=== PATIENT | male | born 1960 | race Caucasian/White ===

== ENCOUNTER → 2016-08-01 | Outpatient (CLI) | payer MEDICARE, MEDICAID | END | disposition home or self-care (01) | LOC: LAB 11:11 | PROVIDERS: ATTEND Specialist | DX: Z01.818 Encounter for other preprocedural examination (principal); C34.12 Malignant neoplasm of upper lobe, left bronchus or lung ==

== ENCOUNTER → 2016-08-09 | Outpatient (CLI) | payer MEDICARE, MEDICAID ==
[~2016-08-09] VITALS: Ht 177.8 cm; Wt 79.4 kg
== END | disposition home or self-care (01) ==
LOC: XY 10:00
PROVIDERS: ATTEND Internal Medicine Cardiovascular Disease
DX: Z01.818 Encounter for other preprocedural examination (principal); C34.12 Malignant neoplasm of upper lobe, left bronchus or lung
CPT/HCPCS: 78452; 93017; A9500

== ENCOUNTER → 2016-09-02 | Outpatient (CLI) | payer MEDICARE, MEDICAID ==
[~2016-09-02] MED LIST: LOSA100T27 PO
== END | disposition home or self-care (01) ==
LOC: XYW 13:51
PROVIDERS: ATTEND Specialist
DX: I25.10 Atherosclerotic heart disease of native coronary artery without angina pectoris (principal); R07.9 Chest pain, unspecified
CPT/HCPCS: 93306